=== PATIENT | female | born 1965 | race Caucasian/White ===

== ENCOUNTER 2019-03-18 19:42 | Emergency (ER) | payer OTHER ==
[~2019-03-18] VITALS: Ht 162.6 cm; Wt 117.9 kg
[~2019-03-18 19:42] MED LIST: CIPROFLOXACIN500 M1 PO; FLAGYL500 MG PO; HYDROCODON-ACE1 EAC7 PO; NAPROSYN500 MG PO; NOHOMEMEDICATIONS
[2019-03-18] MEDS ORDERED: PROAIR HFA8.5 GM INH (19:55)
[2019-03-18] MEDS ORDERED: NEXIUM40 M2 PO (19:56)
[2019-03-18] MEDS ORDERED: ZPAK PO (19:58)
[2019-03-18] MEDS ORDERED: TESSALON PERLE100 MG PO (19:58)
[2019-03-18 20:53] LABS: URINE BILIRUBIN NEGATIVE (Negative); URINE BLOOD NEGATIVE (Negative); URINE CLARITY CLEAR; URINE COLOR YELLOW; URINE GLUCOSE-RANDOM NEGATIVE (Negative); URINE KETONES NEGATIVE (Negative); URINE LEUKOCYTES-REFLEX NEGATIVE (Negative); URINE NITRITE-REFLEX NEGATIVE (Negative); URINE PROTEIN NEGATIVE (Negative); URINE SPECIFIC GRAVITY >= 1.030 (1.005-1.030); URINE UROBILINOGEN 0.2 E.U./dl (0.2-1.0)
[2019-03-18] MEDS ORDERED: FLEXERIL PO (21:05)
[2019-03-18] MEDS ORDERED: PREDNISONE50 MG PO (21:05)
[2019-03-18 21:22] VITALS: BP 145/82
== END 2019-03-18 21:26 | disposition home or self-care (01) ==
LOC: M.ERS 19:42
PROVIDERS: Emergency Medicine
DX: R07.89 Other chest pain (principal); Z90.49 Acquired absence of other specified parts of digestive tract; Z90.710 Acquired absence of both cervix and uterus; Z88.1 Allergy status to other antibiotic agents

== ENCOUNTER → 2019-05-08 | Outpatient (CLI) | payer OTHER ==
[~2019-05-08] MED LIST changes: +FLEXERIL PO; +NEXIUM40 M2 PO; +PREDNISONE50 MG PO; +PROAIR HFA8.5 GM INH; +TESSALON PERLE100 MG PO; +ZPAK PO
[2019-05-08 09:05] LABS: ABSOLUTE BASOPHILS 0.1 thou/uL (0.0-0.2); ABSOLUTE EOSINOPHILS 0.4 thou/uL (0.0-0.7); ABSOLUTE LYMPHOCYTES 1.4 thou/uL (0.8-5.3); ABSOLUTE MONOCYTES 0.6 thou/uL (0.0-1.2); BASOPHILS 1.1 %; EOSINOPHILS 5.9 %; HEMATOCRIT 46.9 % (37.0-47.0); HEMOGLOBIN 16.6 gm/dL (12.0-15.0); LYMPHOCYTES 22.3 %; MCH 32.2 pg (26.0-34.0); MCHC 35.4 g/dL (28.0-37.0); MCV 90.9 fL (80.0-100.0); MONOCYTES 8.7 %; MPV 7.4 fl. (7.2-11.1); NUCLEATED RBCS 0 /100WBC; PLATELET COUNT* 318 thou/uL (150-400); RBC 5.15 mil/uL (4.20-5.00); RDW-CV 13.3 % (10.5-14.5); WBC 6.5 thou/uL (4.0-11.0)
[2019-05-08 09:16] LABS: PROTIME 9.9 Seconds (9.20-11.50)
[2019-05-08 09:32] LABS: ALBUMIN 3.5 g/dL (3.4-5.0); POTASSIUM 4.3 mmol/L (3.5-5.1); TOTAL BILIRUBIN 0.4 mg/dL (<0.1-1.0); TOTAL PROTEIN 6.9 g/dL (6.4-8.2)
== END ==
LOC: M.LAB 08:32
PROVIDERS: Orthopaedic Surgery
DX: Z01.818 Encounter for other preprocedural examination (principal)

== ENCOUNTER → 2019-06-28 | Outpatient (CLI) | payer OTHER | LOC: M.RAD 11:35 | DX: M19.072 Primary osteoarthritis, left ankle and foot (principal); M25.775 Osteophyte, left foot; R60.0 Localized edema; M25.772 Osteophyte, left ankle ==

== ENCOUNTER → 2019-07-24 | Outpatient (CLI) | payer OTHER | LOC: M.MRI 07-23 09:52 | DX: M51.87 Other intervertebral disc disorders, lumbosacral region (principal); M51.26 Other intervertebral disc displacement, lumbar region; M48.061 Spinal stenosis, lumbar region without neurogenic claudication; M51.84 Other intervertebral disc disorders, thoracic region; M48.04 Spinal stenosis, thoracic region; M54.31 Sciatica, right side ==